=== PATIENT | male | born 1950 | race Caucasian/White ===

== ENCOUNTER 2018-04-07 18:37 | Emergency (ER) | payer MEDICARE, OTHER, SELFPAY ==
[2018-04-07 18:40] VITALS: BP 124/69; PULSE 90; RESP 14; TEMP 36.7; O2SAT 98
--- NOTE | 2018-04-07 18:44 | DI.RAD.S_ITS ---
PROCEDURE: XR ANKLE RT MIN 3V INDICATIONS: fall TECHNIQUE: 4 views of the ankle were acquired. COMPARISON: None. FINDINGS: Bones: Fracture subluxation of the right ankle with an oblique right fibular fracture and transverse right medial malleolus fracture. There is medial subluxation of the tibia relative to the talus with widening of the tibiofibular space. Likely intra-articular posterior tibial fracture. Soft tissues: Achilles tendon appears normal. IMPRESSION: At least bimalleolar possibly trimalleolar right ankle fracture with lateral subluxation of the talus relative to the tibia and likely disruption of the interosseous ligament. Dictated by: Ry Gallardo M.D. on 04/07/2018 at 19:07 Approved by: Ry Gallardo M.D. on 04/07/2018 at 19:09
--- NOTE | 2018-04-07 19:00 | ED.LOWEXIN ---
HPI - Extremity Injury (Lower) General Chief Complaint: Extremity Injury, Lower Stated Complaint: RT ANKLE INJURY Time Seen by Provider: 04/07/18 18:58 Source: patient Mode of arrival: wheelchair Limitations: no limitations History of Present Illness HPI Narrative: Pt is here for evaluation of a right ankle injury. pt states that he slipped just prior to arrival and heard a pop and has had a pain and deformity and pain with waling since then. Related Data Home Medications Medication Instructions Recorded Confirmed aspirin [Aspir-81] 81 mg PO DAILY 04/07/18 04/07/18 simvastatin 40 mg PO QAM 04/07/18 04/07/18 Previous Rx's Medication Instructions Recorded hydrocodone-acetaminophen [[place]] 1 tab PO Q4H PRN #20 tab 04/07/18 Allergies Allergy/AdvReac Type Severity Reaction Status Date / Time No Known Drug Allergies Allergy Verified 04/07/18 18:42 Review of Systems Constitutional Denies chills, Denies fever(s), Denies lethargy and Denies weakness Cardiovascular Denies chest pain, Denies irregular heart rhythm, Denies lightheadedness, Denies palpitations, Denies dyspnea, Denies dyspnea on exertion and Denies orthopnea Respiratory Denies cough, Denies dyspnea, Denies dyspnea on exertion and Denies wheezing Musculoskeletal Denies tingling Comments: right ankle pain and deformity Integumentary/Breasts Denies pruritus, Denies erythema, Denies rash and Denies wounds Neurologic Denies tingling and Denies weakness Endocrine Denies palpitations Allergic/Immunologic Denies wheezing PFS Social History Smoking Status: Current every day smoker Exam Const General: cooperative and well developed Nutritional Appearance: well nourished Orientation: alert, awake, oriented x3 and not confused Cardio Pulses: dorsalis pedis present Skin General: no rashes or lesions noted, No jaundice and No petechiae Neuro Other: sensation intact to light touch to the right LE Extrem Other: right knee unremarkable. no proximal fibula tenderness deformity and pain and bruising around the right ankle. Procedures Orthopedic Splinting/Casting Injury #1: Side: right Lower Extremity Injury Location: ankle Lower Extremity Immobilizer: posterior splint and stirrup splint Other Orthopedic Equipment: crutches MDM - Extremity Injury (Lower) MDM Narrative Medical decision making narrative: pt is N/V intact has a right ankele fracture. splint placed by myself. discussed case with Dr Peng with ortho who states that the pt can be placed in a splint and have them call the office on monday for a follow up. pt was given care instructions and pain medication. they were given splint care instructions and follow up precautions. they expressed understanding and agreement with plan. Imaging Data ankle x-ray : Radiologist's impression: PROCEDURE: XR ANKLE RT MIN 3V INDICATIONS: fall TECHNIQUE: 4 views of the ankle were acquired. COMPARISON: None. FINDINGS: Bones: Fracture subluxation of the right ankle with an oblique right fibular fracture and transverse right medial malleolus fracture. There is medial subluxation of the tibia relative to the talus with widening of the tibiofibular space. Likely intra-articular posterior tibial fracture. Soft tissues: Achilles tendon appears normal. IMPRESSION: At least bimalleolar possibly trimalleolar right ankle fracture with lateral subluxation of the talus relative to the tibia and likely disruption of the interosseous ligament. Dictated by: Ry Gallardo M.D. on 04/07/2018 at 19:07 Course Orders Ordered: ED Orders 04/07/18 18:44 XR ankle RT min 3V Stat Discontinued Medications Hydrocodone Bitart/Acetaminophen (Vicodin Prepack) 1 bottle MISC SEEINSTR ONE Stop: 04/07/18 20:34 Last Admin: 04/07/18 20:42 Dose: 1 bottle Hydromorphone HCl (Dilaudid) 1 mg IM Q4H PRN PRN Reason: Severe Pain Last Admin: 04/07/18 19:33 Dose: 1 mg Last Vital Signs Temp 97.5 F L 04/07/18 20:52 Pulse 87 04/07/18 20:52 Resp 16 04/07/18 20:52 BP 112/68 04/07/18 20:52 Pulse Ox 94 04/07/18 20:52 Discharge Plan Departure Patient Disposition: Home, Self-Care Clinical Impression: Fracture of distal end of right tibia, Fracture of distal end of fibula Discharge Date/Time: 04/07/18 20:53 Interventions: ED Discharge Assessment Last Done: 04/07/18 20:52 Instructions: How to Use Crutches, DI for Ankle Fracture, How to Take Care of Your Splint Activity Restrictions/Additional Instructions: Keep the splint on and keep it clean and keep it dry. You are to use the crutches. Do not place pressure on your right lower extremity. Call the [facility] on Monday morning at [phone] for a follow-up next week. Return to the emergency department for any new or worsening symptoms Prescriptions: New hydrocodone-acetaminophen [[place]] 5-325 mg tablet 1 tab PO Q4H PRN (Reason: pain) Qty: 20 RF: 0 No Action aspirin [Aspir-81] 81 mg Tablet,Delayed Release (Dr/Ec) 81 mg PO DAILY RF: 0 simvastatin 40 mg Tablet 40 mg PO QAM RF: 0
[2018-04-07 19:02] VITALS: PULSE 60
[2018-04-07] MEDS: HYDROMORPHONE 2 MG INJ 1 MG IM (19:33)
--- NOTE | 2018-04-07 19:34 | PC.NURSE ---
dilaudid im given as 2 0.5mg/ml from floorstock. ordered 0.5ml of 2mg/ml not is floor stock.
[2018-04-07] MEDS: HYDROCODONE/ACET 5/325 PREPACK 1 BOTTLE MISC (20:42)
[2018-04-07 20:52] VITALS: BP 112/68; PULSE 87; RESP 16; TEMP 36.4; O2SAT 94
== END 2018-04-07 20:53 | disposition home or self-care (01) ==
PROVIDERS: Emergency Provider Emergency Medicine
DX: S82.301A Unspecified fracture of lower end of right tibia, initial encounter for closed fracture (principal); S82.831A Other fracture of upper and lower end of right fibula, initial encounter for closed fracture; W01.0XXA Fall on same level from slipping, tripping and stumbling without subsequent striking against object, initial encounter
CPT/HCPCS: 29505; 73610; 99283; J1170